=== PATIENT | female | born 1960 | race Caucasian/White ===

== ENCOUNTER → 2023-07-12 08:22 | Outpatient (REF) | payer BC, SELFPAY | LOC: WDC 08:22 | PROVIDERS: ATTENDING PHYSICIAN Nurse Practitioner Adult Health | DX: Z12.31 Encounter for screening mammogram for malignant neoplasm of breast (principal) | CPT/HCPCS: 77063; 77067 ==

== ENCOUNTER → 2023-08-15 07:00 | Outpatient (REF) | payer BC, SELFPAY | LOC: RAD 07:00 | PROVIDERS: ATTENDING PHYSICIAN Specialist; FAMILY PHYSICIAN Nurse Practitioner Adult Health | DX: C67.9 Malignant neoplasm of bladder, unspecified (principal) | CPT/HCPCS: 76770 ==

== ENCOUNTER 2023-12-28 16:57 | Emergency (ER) | payer BC, SELFPAY ==
[2023-12-28 17:13] VITALS: BP 179/101
[2023-12-28 17:37] LABS: % Basophils 0.8 % (0-2); % Eosinophils 3.7 % (0-6); % Immature Granulocytes 0.3 % (0-0.5); % Lymphocytes 37.9 % (20.5-51.1); % Neutrophils 48.3 % (42.2-75.2); Absolute Basophils 0.1 10^3/uL (0-0.2); Absolute Eosinophils 0.2 10^3/uL (0-0.7); Absolute Lymphocytes 2.4 10^3/uL (1.2-3.4); Absolute Monocytes 0.6 10^3/uL (0.1-0.6); Absolute Neutrophils 3.1 10^3/uL (1.4-6.5); Hematocrit 36.2 % (37.0-47.0); Hemoglobin 12.4 g/dL (12.0-16.0); Mean Corp Hgb Conc. 34.3 g/dL (33.0-37.0); Mean Corpuscular Hgb 32.5 pg (27.0-31.0); Mean Platelet Volume 9.8 fL (7.4-10.4); Nucleated Red Blood Cells % 0 %; Platelet Count 157 10^3/uL (130-400); Red Blood Cell Count 3.81 10^6/uL (4.20-5.40); Red Cell Dist. Width 12.7 % (11.5-14.5); White Blood Cell Count 6.4 10^3/uL (4.8-10.8)
[2023-12-28 18:03] LABS: ALT (SGPT) 19 U/L (0-35); AST (SGOT) 30 U/L (14-36); Albumin 4.4 g/dl (3.5-5.0); Alkaline Phosphatase 80 U/L (38-126); Blood Urea Nitrogen 13 mg/dl (7-17); Carbon Dioxide 29 mmol/L (22-30); Chloride 101 mmol/L (98-107); Glucose 103 mg/dl (70-99); Potassium 4.4 mmol/L (3.5-5.1); Sodium 141 mmol/L (135-145); Total Bilirubin 0.7 mg/dl (0.2-1.3); Total Protein 6.9 g/dl (6.3-8.2); eGFR > 60.00
[2023-12-28 19:24] VITALS: BP 163/95
--- NOTE | 2023-12-28 19:33 | ED.GENMED ---
History of Present Illness
General
Chief Complaint: Dizziness
Source: patient
Exam Limitations: none
Time Seen by Provider: 12/28/23 19:33
Nursing documentation reviewed up to this point in time: agreed with
History of Present Illness
History of Present Illness:
63-year-old female presents emergency room complaining of dizziness, room spinning, it started while at home. It came on suddenly. She was nauseous. Has somewhat improved. Is worse when she turns her head.
Past History
Past History
ED Past Medical History: Cancer (Bladder), GERD, HTN and Other (Diverticulitis, polyps, cervical spine stenosis, patient)
ED Past Surgical History: Urological (Bladder tumor removal)
Social History
Tobacco: Former smoker
Alcohol: None
Drug: None
Personal:
Living: with family
Review of Systems
Review of Systems
Allergies reviewed?: Yes
All Other Systems: Not applicable
Constitutional: Reports no symptoms
EENT: Reports no symptoms
Respiratory: Reports no symptoms
Cardiac: Reports no symptoms
ABD/GI: Reports nausea; Denies abdominal pain
: Reports no symptoms
Musculoskeletal: Reports no symptoms
Skin: Reports no symptoms
Neurological: Reports dizzy and headache
Endocrine: Reports no symptoms
Hematologic/Lymphatic: Reports no symptoms
Psychiatric: Reports no symptoms
Phy Exam
Physical Exam
Physical Exam:
Physical Exam
General: no apparent distress, not acutely ill
Neck: supple. no meningeal signs. normal posterior pharynx
Heart: s1/s2 regular rate and rhythm, no murmur. equal radial
pulses.
HEENT: Pupils equal round reactive to light, EOMI
Lungs: no acute respiratory distress. clear bilaterally
Abdomen: normal bowel sounds. not tender. no CVAT
Neuro: alert and oriented. no focal neurological deficits cranial nerves II through XII intact
Skin: no rash
Psychiatric: well kept. interactive and cooperative
Extremities: no edema. no calf tenderness. negative homans. good distal pulses
Course
Orders/Labs/Results
Orders:
Orders
12/28/23 17:16
ECG [Electrocardiogram (*1)] Urgent
Reason for Study: Vertigo / Dizzy
EKG- Treatment ONCE
12/28/23 17:28
Complete Blood Count/With Diff Urgent
Comprehensive Metabolic Panel Urgent
12/28/23 19:45
CT Head W/o Iv Contrast Urgent
Comment:
Reason For Exam: dizziness, posterior headache
12/28/23 21:22
Meclizine [Antivert] 25 mg PO NOW STA
Abnormal Lab Results
12/28/23
17:28
RBC 3.81 L 10^6/uL
(4.20-5.40)
Hct 36.2 L %
(37.0-47.0)
MCH 32.5 H pg
(27.0-31.0)
Glucose 103 H mg/dl
(70-99)
12/28/23 17:28
12/28/23 17:28
Vital Signs
Initial and Last Documented VS:
Initial Vital Signs
Temp Pulse Resp BP Pulse Ox
97.7 F 81 18 179/101 98
12/28/23 17:13 12/28/23 17:13 12/28/23 17:13 12/28/23 17:13 12/28/23 17:13
Last Documented Vital Signs
Temp Pulse Resp BP Pulse Ox
97.7 F 78 19 158/91 96
12/28/23 17:13 12/28/23 21:15 12/28/23 21:15 12/28/23 21:00 12/28/23 21:15
MDM/Problems Addressed
Differential Diagnosis Includes:
CVA, vertigo, dysrhythmia
MDM/Problems Addressed:
63-year-old female with dizziness, suspect peripheral vertigo, due to positional changes. No diplopia slurred speech or other neurologic deficits. CT head no acute findings. Patient stable for discharge. Follow-up with physical therapy and
primary care.
Chronic conditions affecting care: HTN
*Radiology
Radiology exam reviewed: radiology read reviewed (CT head no acute findings)
*Pulse Oximetry
Patient hypoxic: no
*EKG
Interpreted by ED Provider?: Yes
EKG Intrepretation Date: 12/28/23
EKG Intrepretation Time: 17:32
Interpretation: normal
Comparison EKG: no changes
Heart Rate: 81
Rate: normal
Rhythm: sinus
Dexter: normal axis
Interval: normal interval
QRS Pattern: normal QRS
Ischemia: no ischemia
*Bean Snipper Interpretation
Rate: normal
Interpretation: normal
Heart Rate: 80
Rhythm: sinus
*Critical Care Note
Total Time (30-74mins, 75-104mins- exclusive of procedures): Not Applicable
Patient Management
Escalation/DeEscalation of care consider admission/obs:
Admit not indicated
ED Attending Note
-
Portions of this chart may have been created with voice recognition software.� Occasional wrong word or��sound alike� substitutions may have occurred due to the inherent limitations of voice recognition software.
Discharge Plan
Departure
Patient Disposition: Home (Routine Discharge)
Date of Disposition: 12/28/23
Time of Disposition: 21:56
Patient with high blood pressure during this ER visit?: Yes
Condition: Good
Discharge Problem:
Dizziness
Instructions: Vertigo (a type of dizziness), BLOOD PRESSURE
Prescriptions:
New
meclizine 25 mg tablet
25 mg PO TID PRN (Reason: dizziness) Qty: 10 0RF
No Action
omeprazole 40 mg Capsule,Delayed Release(Dr/Ec)
40 mg PO DAILY PRN (Reason: gerd)
citalopram 20 mg Tablet
20 mg PO DAILY
lisinopril 5 mg Tablet
5 mg PO DAILY
cholecalciferol (vitamin D3) [Vitamin D3] 50 mcg (2,000 unit) Tablet
50 mcg PO DAILY
mecobalamin (vitamin B12) [B12 Active] 1,000 mcg Tablet,Chewable
1,000 mcg PO DAILY
Referrals:
UNKNOWN - PT NOT,INTERVIEWE [Unknown Provider] -
Activity Restrictions/Additional Instructions:
Follow up with primary care in 3-5 days. Return for any concerns.
Interventions
Interventions:
*Risk Screen - Suicide Last Done: 12/28/23 20:13
*General Assessment Last Done: 12/28/23 20:13
*Neglect/Abuse Screening Last Done: 12/28/23 20:13
*Nursing Disposition Last Done: 12/28/23 22:00
ED- Neurological Assessment Last Done: 12/28/23 20:13
ED Swallowing Screen Last Done: 12/28/23 21:26
Discharge Date and Time
Print Language: BELIZEAN
[2023-12-28 20:00] VITALS: BP 159/99
[2023-12-28 20:35] VITALS: BP 182/94
[2023-12-28 21:00] VITALS: BP 158/91
[2023-12-28] MEDS: ANTIVERT 25 MG PO (21:24)
== END 2023-12-28 22:14 | disposition home or self-care (01) ==
LOC: EMR 16:57
PROVIDERS: Student in an Organized Health Care Education/Training Program; EMERGENCY PHYSICIAN Emergency Medicine; FAMILY PHYSICIAN Nurse Practitioner Adult Health
DX: R42 Dizziness and giddiness (principal); R51.9 Headache, unspecified; R11.0 Nausea; I10 Essential (primary) hypertension; K21.9 Gastro-esophageal reflux disease without esophagitis; K57.92 Diverticulitis of intestine, part unspecified, without perforation or abscess without bleeding; M48.02 Spinal stenosis, cervical region; M19.90 Unspecified osteoarthritis, unspecified site; Z85.51 Personal history of malignant neoplasm of bladder; Z87.891 Personal history of nicotine dependence
CPT/HCPCS: 99284; 70450; 80053; 85025; 93005

== ENCOUNTER → 2024-07-25 07:28 | Outpatient (REF) | payer BC, SELFPAY | LOC: WDC 07:28 | PROVIDERS: ATTENDING PHYSICIAN Nurse Practitioner Adult Health | DX: Z12.31 Encounter for screening mammogram for malignant neoplasm of breast (principal) | CPT/HCPCS: 77063; 77067 ==